=== PATIENT | female | born 2000 | race Caucasian/White ===

== ENCOUNTER 2018-03-28 11:54 | Emergency (ER) | payer OTHER ==
[~2018-03-28] VITALS: Ht 157.5 cm; Wt 58.8 kg
[2018-03-28 12:01] VITALS: TEMP 36.8; Ht 157.5 cm; Wt 58.8 kg
[2018-03-28 12:52] VITALS: O2SAT 99
[2018-03-28 13:01] LABS: BASO % 0.1 %; BASO ABS # 0.01 K/uL (0-0.2); EOS % 0.4 %; EOS ABS # 0.04 K/uL (0-0.5); HEMOGLOBIN 13.3 g/dL (12.0-16.0); IG# 0.02 K/uL (0.00-0.02); LYMPH % 18.5 %; LYMPH ABS # 1.81 K/uL (1.2-3.4); MEAN CELL VOLUME 87.2 fL (80-100); MEAN CORPUSCULAR HEMOGLOBIN 29.8 pg (25-34); MEAN CORPUSCULAR HGB CONC 34.1 g/dl (32-36); MEAN PLATELET VOLUME 8.6 fL (7.4-10.4); MONO % 7.4 %; MONO ABS # 0.72 K/uL (0.11-0.59); NEUT % 73.4 %; NEUT ABS # 7.16 K/uL (1.4-6.5); PLATELET COUNT 306 K/uL (130-400); RED CELL DISTRIBUTION WIDTH CV 12.7 % (11.5-14.5); WHITE BLOOD COUNT 9.76 K/uL (4.8-10.8)
[2018-03-28] MEDS ORDERED: BCPILLS PO (13:25)
[2018-03-28 13:26] LABS: PTT PATIENT 26.8 SECONDS (21.0-31.0)
[2018-03-28 13:32] LABS: ALBUMIN 3.9 gm/dl (3.4-5.0); ALKALINE PHOSPHATASE 41 U/L (45-117); ALT/SGPT 24 U/L (12-78); AST/SGOT 25 U/L (15-37); BLOOD UREA NITROGEN 10 mg/dl (7-18); CALCIUM 8.8 mg/dl (8.5-10.1); CARBON DIOXIDE 21 mmol/L (21-32); CKMB < 1.0 ng/ml (0.5-3.6); CREATININE 0.76 mg/dl (0.60-1.20); GLUCOSE 78 mg/dl (70-99); POTASSIUM 3.7 mmol/L (3.5-5.1); SODIUM 137 mmol/L (136-145); TOTAL PROTEIN 8.1 gm/dl (6.4-8.2)
--- NOTE | 2018-03-28 15:32 | DIAGNOSTIC IMAGING REPORT ---
MRA OF THE INTRACRANIAL CIRCULATION WITHOUT CONTRAST CLINICAL HISTORY: Extremity numbness. COMPARISON STUDY: None. TECHNIQUE: Utilizing a 1.5 Jodie magnet and 3-D alrg-ma-jkootw technique, unenhanced MRA of the intracranial circulation was obtained. FINDINGS: The bilateral M1, M2, A1 and A2 segments are patent. There is no abrupt vessel cutoff, dissection or aneurysm within the intracranial circulation. There is an anterior communicating artery and bilateral posterior communicating arteries. Posterior circulation is intact. Please note that the MRI of the brain will be reported separately. IMPRESSION: Normal MRA of the head. Electronically signed by: Hong Banks M.D. 03/28/2018 3:31 PM Dictated Date/Time: 03/28/2018 3:28 PM
[2018-03-28] MEDS ORDERED: GADAVIST IV PRN (15:45)
--- NOTE | 2018-03-28 15:45 | EMERGENCY ROOM VISIT NOTE ---
History First contact with patient: 12:07 Chief Complaint: NEURO SYMPTOMS Stated Complaint: NUMBNESS THROUGHOUT BODY Nursing Triage Summary: Pt stated that last night she began to get numbness in the left thumb that moved up her arm and it moved to her right arm. Numbness started in the left leg and chin today. Pt stated when she left class today she couldn't focus. History of Present Illness The patient is a 17 year old female who presents to the Emergency Room via private vehicle with complaints of "numbness throughout body". The patient states that yesterday evening around 6 PM she notes that her left hand began to feel numb and then it went to open her left wrist region. She then notes that it progressed to her right wrist and into her left leg. She denies any trouble speaking, or identifiable weakness. She feels in his numb regions those areas feel slightly weak. No history of it being this severe. She denies any pain currently. She denies chance of . She notes that she did consume some drink of alcohol, quantifying about 6 drinks this past evening. No trauma , falls or injury. Review of Systems A complete 10-point Review of Systems was discussed with the patient, with pertinent positives and negatives listed in the History of Present Illness. All remaining Review of Systems questions can be considered negative unless otherwise specified. Past Medical/Surgical History No pertinent. Family History No pertinent. Social History Smoking Status: Never Smoker Patient is a [employer] student and lives locally. Current/Historical Medications Scheduled Control Pills ( Control Pills), 1 TAB PO DAILY Physical Exam Vital Signs Date Time Temp Pulse Resp B/P (MAP) Pulse Ox O2 Delivery O2 Flow Rate FiO2 03/28/18 17:24 89 16 117/71 99 03/28/18 16:00 97 16 125/77 100 Room Air 03/28/18 14:01 131/73 03/28/18 13:54 89 17 98 03/28/18 13:44 133/69 03/28/18 13:24 81 97 03/28/18 12:54 89 18 125/73 98 Room Air 03/28/18 12:54 86 17 125/73 99 03/28/18 12:52 99 Room Air 03/28/18 12:49 81 03/28/18 12:01 36.8 95 17 130/78 98 Room Air Physical Exam VITAL SIGNS - Vital signs and nursing notes were reviewed. Stable. Afebrile. GENERAL -17-year-old female appearing her stated age who is in no acute distress. She is sitting upright in bed and converses without difficulty. Communicates well with provider and answers questions appropriately. SKIN - Without rashes. No meningeal or petechial rash. HEAD - NC/AT. EYES - PERRL with EOMI bilaterally. Sclera anicteric. Palpebral conjunctiva pink and moist with no injection noted. EARS - No deformities of external structures noted on gross examination bilaterally. External auditory canals without discharge or otorrhea. Tympanic membranes pearly narayanan without retraction or bulging. No fluid or purulent material visualized behind the TM. Handle of malleus, umbo, cone of light, pars tensa/flaccid all easily visualized. NOSE - Midline and without cyanosis. No epistaxis or purulent drainage noted. Septum midline without deviation or septal hematoma noted. MOUTH/OROPHARYNX - Without perioral cyanosis. Buccal mucosa pink and moist and without leukoplakia. Tongue midline with equal elevation of palate bilaterally. No tonsillar hypertrophy, erythema, or exudates noted. Fair dentition noted. NECK - Neck with FROM. Supple to palpation. No lymphadenopathy noted. No nuchal rigidity. LUNGS - Chest wall symmetric without accessory muscle use, intercostals retractions, or central cyanosis. Normal vesicular breath sounds CTA B/L. No wheezes, rales, or rhonchi appreciated. CARDIAC - RRR with S1/S2. No murmur, rubs, or gallops appreciated. EXTREMITIES - No clubbing or peripheral cyanosis. No pretibial edema present. + 5/5 strength noted in UE/LE bilaterally. NEUROLOGIC - Cranial nerves II through XII grossly intact. Sensory intact to light touch throughout. PSYCH - A&Ox3 and cooperates fully with examiner. Pt is very pleasant and interacts well with examiner. Medical Decision & Procedures ER Provider Diagnostic Interpretation: MRA OF THE INTRACRANIAL CIRCULATION WITHOUT CONTRAST CLINICAL HISTORY: Extremity numbness. COMPARISON STUDY: None. TECHNIQUE: Utilizing a 1.5 Jodie magnet and 3-D cond-zh-exbsom technique, unenhanced MRA of the intracranial circulation was obtained. FINDINGS: The bilateral M1, M2, A1 and A2 segments are patent. There is no abrupt vessel cutoff, dissection or aneurysm within the intracranial circulation. There is an anterior communicating artery and bilateral posterior communicating arteries. Posterior circulation is intact. Please note that the MRI of the brain will be reported separately. IMPRESSION: Normal MRA of the head. Electronically signed by: Hong Banks M.D. 03/28/2018 3:31 PM Dictated Date/Time: 03/28/2018 3:28 PM MRI OF THE BRAIN WITHOUT AND WITH IV CONTRAST CLINICAL HISTORY: Bilateral upper extremity and left leg numbness. COMPARISON STUDY: No previous studies for comparison. TECHNIQUE: Utilizing a 1.5 Jodie magnet and dedicated coil, multiplanar, multiecho imaging of the brain was performed pre and postcontrast administration. IV administration of 5.5 mL of Gadavist contrast was uneventful. FINDINGS: There are no foci of restricted diffusion to suggest acute infarct. No acute intracranial hemorrhage, midline shift or mass effect is present. Ventricular system is unremarkable. Basilar cisterns are patent. There are no extra-axial collections. Flow-voids for the major intracranial vessels are present. There is no intracranial mass or pathologic enhancement. A 2 mm punctate white matter T2 hyperintense focus within the left frontal lobe shown on coronal FLAIR image is noted. Calvarial signal is maintained. Orbits are unremarkable. Prominent perivascular space within the right parietal lobe is noted. IMPRESSION: 1. No acute intracranial findings. 2. No intracranial mass or pathologic enhancement. 3. Punctate 2 mm white matter T2 hyperintense focus within the left frontal lobe which is of doubtful significance. Electronically signed by: Hong Banks M.D. 03/28/2018 3:46 PM Dictated Date/Time: 03/28/2018 3:42 PM Laboratory Results 03/28/18 12:47 Red Blood Count 4.47, Mean Corpuscular Volume 87.2, Mean Corpuscular Hemoglobin 29.8, Mean Corpuscular Hemoglobin Concent 34.1, Mean Platelet Volume 8.6, Neutrophils (%) (Auto) 73.4, Lymphocytes (%) (Auto) 18.5, Monocytes (%) (Auto) 7.4, Eosinophils (%) (Auto) 0.4, Basophils (%) (Auto) 0.1, Neutrophils # (Auto) 7.16, Lymphocytes # (Auto) 1.81, Monocytes # (Auto) 0.72, Eosinophils # (Auto) 0.04, Basophils # (Auto) 0.01 03/28/18 12:47 Test 03/28/18 12:47 03/28/18 13:53 White Blood Count 9.76 K/uL (4.8-10.8) Red Blood Count 4.47 M/uL (4.2-5.4) Hemoglobin 13.3 g/dL (12.0-16.0) Hematocrit 39.0 % (37-47) Mean Corpuscular Volume 87.2 fL (80-100) Mean Corpuscular Hemoglobin 29.8 pg (25-34) Mean Corpuscular Hemoglobin Concent 34.1 g/dl (32-36) Platelet Count 306 K/uL (130-400) Mean Platelet Volume 8.6 fL (7.4-10.4) Neutrophils (%) (Auto) 73.4 % Lymphocytes (%) (Auto) 18.5 % Monocytes (%) (Auto) 7.4 % Eosinophils (%) (Auto) 0.4 % Basophils (%) (Auto) 0.1 % Neutrophils # (Auto) 7.16 K/uL (1.4-6.5) Lymphocytes # (Auto) 1.81 K/uL (1.2-3.4) Monocytes # (Auto) 0.72 K/uL (0.11-0.59) Eosinophils # (Auto) 0.04 K/uL (0-0.5) Basophils # (Auto) 0.01 K/uL (0-0.2) RDW Standard Deviation 41.0 fL (36.4-46.3) RDW Coefficient of Variation 12.7 % (11.5-14.5) Immature Granulocyte % (Auto) 0.2 % Immature Granulocyte # (Auto) 0.02 K/uL (0.00-0.02) Prothrombin Time 10.2 SECONDS (9.0-12.0) Prothromb Time International Ratio 1.0 (0.9-1.1) Activated Partial Thromboplast Time 26.8 SECONDS (21.0-31.0) Partial Thromboplastin Ratio 1.0 Anion Gap 13.0 mmol/L (3-11) Est Creatinine Clear Calc Drug Dose 94.2 ml/min Estimated GFR () 131.8 Estimated GFR (Non- 113.7 BUN/Creatinine Ratio 13.4 (10-20) Calcium Level 8.8 mg/dl (8.5-10.1) Magnesium Level 1.7 mg/dl (1.8-2.4) Total Bilirubin 0.5 mg/dl (0.2-1) Aspartate Amino Transf (AST/SGOT) 25 U/L (15-37) Alanine Aminotransferase (ALT/SGPT) 24 U/L (12-78) Alkaline Phosphatase 41 U/L (45-117) Total Creatine Kinase 139 U/L (26-192) Creatine Kinase MB < 1.0 ng/ml (0.5-3.6) Creatine Kinase MB Ratio (0-3.0) Troponin I < 0.015 ng/ml (0-0.045) Total Protein 8.1 gm/dl (6.4-8.2) Albumin 3.9 gm/dl (3.4-5.0) Globulin 4.2 gm/dl (2.5-4.0) Albumin/Globulin Ratio 0.9 (0.9-2) Thyroid Stimulating Hormone (TSH) 1.310 uIu/ml (0.300-4.500) Lyme Disease IgG Antibody NEG (NEG) Lyme Disease IgM Antibody NEG (NEG) Urine Color DK YELLOW Urine Appearance CLEAR (CLEAR) Urine pH 5.5 (4.5-7.5) Urine Specific [place] 1.029 (1.000-1.030) Urine Protein NEG (NEG) Urine Glucose (UA) NEG (NEG) Urine Ketones 1+ (NEG) Urine Occult Blood NEG (NEG) Urine Nitrite NEG (NEG) Urine Bilirubin NEG (NEG) Urine Urobilinogen NEG (NEG) Urine Leukocyte Esterase NEG (NEG) Urine Test NEG (NEG) Urine Opiates Screen NEG (NEG) Urine Methadone, Qualitative NEG (NEG) Urine Barbiturates NEG (NEG) Urine Phencyclidine (PCP) Level NEG (NEG) Ur Amphetamine/Methamphetamine NEG (NEG) MDMA (Ecstasy) Screen NEG (NEG) Urine Benzodiazepines Screen NEG (NEG) Urine Cocaine Metabolite NEG (NEG) Urine Marijuana (THC) NEG (NEG) Medications Administered Medications (Trade) Dose Ordered Sig/Debra Route Start Time Stop Time Status Last Admin Dose Admin Magnesium Oxide (Mag-Ox Tab) 400 mg NOW STAT PO 03/28/18 16:51 03/28/18 16:52 DC 03/28/18 17:00 400 MG Medical Decision Patient was seen and evaluated as above in room D4. Review was performed of nursing notes and vital signs. After obtaining a thorough history and physical examination the above work up was performed. She presents to us today with numbness in specific regions of the body but they are not just on one side. She has no neurovascular deficit on examination. Decision was made to refrain from CT given that she does not present with true strokelike symptoms. In order to save her from radiation as well as obtain a better test decision was made to obtain that with her presentation and MRI would be best. This was ordered. In review of her blood work here there is no concerning leukocytosis, anemia or emergent metabolic ab normality. Slight hypomagnesemia. Otherwise no emergent process identified on her lab work. Her EKG is normal sinus rhythm per my interpretation there is no evidence of [place] on this exam. MRI was essentially unremarkable. There was a hyperintense focus which I did discuss this with the neurologist as well as the patient's symptoms. I discussed this at 4:[address] Nguyen. At this time we believe the patient is stable for outpatient management and a follow-up with her in the office if her symptoms continue or worsen. At this time it is important note that I do not suspect any emergent process or CVA. Patient was educated upon importance of follow-up and she is to call [facility] [address] [facility] first thing tomorrow to schedule follow-up or return with worsening symptoms. She was given oral magnesium here with education upon foods high in magnesium to help replete this electrolyte. The patient was educated upon management, educated upon todays findings/results, educated upon symptoms in which to return, had questions answered prior to discharge, and was discharged home in good condition. Case was discussed with the attending physician. In the evaluation and treatment of this patient, the following differential diagnoses were considered: Migraine Headache, Intracranial Hemorrhage, Subdural Hematoma, Subarachnoid Hemorrhage, Cerebral Aneurysm, Temporal/Giant Cell Arteritis, Tension Headache, Meningitis, Encephalitis, CVA, electrolyte abnormality, drug-induced nephropathy, Hydrocephalus, among others. Impression Primary Impression: Paresthesia Departure Information Dispostion Home / Self-Care Condition GOOD Referrals No Doctor, Assigned (PCP) Delores Nguyen D.O. Patient Instructions My [facility] Additional Instructions You were seen in the emergency department for numbness of the arms and left leg At this time your MRI and blood work did not show any emergent cause of your symptoms. I have discussed this with our neurologist, Dr. Nguyen. If this persists she is happy to see you in the office. Her phone number has been provided. Please call [facility] [address] to schedule follow-up as well. Please return with any new/concerning symptoms.
--- NOTE | 2018-03-28 15:48 | DIAGNOSTIC IMAGING REPORT ---
MRI OF THE BRAIN WITHOUT AND WITH IV CONTRAST CLINICAL HISTORY: Bilateral upper extremity and left leg numbness. COMPARISON STUDY: No previous studies for comparison. TECHNIQUE: Utilizing a 1.5 Jodie magnet and dedicated coil, multiplanar, multiecho imaging of the brain was performed pre and postcontrast administration. IV administration of 5.5 mL of Gadavist contrast was uneventful. FINDINGS: There are no foci of restricted diffusion to suggest acute infarct. No acute intracranial hemorrhage, midline shift or mass effect is present. Ventricular system is unremarkable. Basilar cisterns are patent. There are no extra-axial collections. Flow-voids for the major intracranial vessels are present. There is no intracranial mass or pathologic enhancement. A 2 mm punctate white matter T2 hyperintense focus within the left frontal lobe shown on coronal FLAIR image of is noted. Calvarial signal is maintained. Orbits are unremarkable. Prominent perivascular space within the right parietal lobe is noted. IMPRESSION: 1. No acute intracranial findings. 2. No intracranial mass or pathologic enhancement. 3. Punctate 2 mm white matter T2 hyperintense focus within the left frontal lobe which is of doubtful significance. Electronically signed by: Hong Banks M.D. 03/28/2018 3:46 PM Dictated Date/Time: 03/28/2018 3:42 PM
[2018-03-28] MEDS ORDERED: MAGNESIUM OXIDE 400 MG TAB PO STA (16:51)
[2018-03-28 17:24] VITALS: BP 117/71; PULSE 89; O2SAT 99
== END 2018-03-28 17:15 | disposition home or self-care (01) ==
LOC: C.EDB 11:57 → C.EDD 17:15
DX: R20.2 Paresthesia of skin (principal); Z79.3 Long term (current) use of hormonal contraceptives